=== PATIENT | male | born 1975 | race Caucasian/White ===

== ENCOUNTER 2019-03-01 14:41 | Emergency (ER) | payer OTHER ==
[2019-03-01] MEDS ORDERED: Ketorolac INJ* 30 MG/ML 1 ML VIAL IM ONE (15:54)
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
[2019-03-01 16:50] VITALS: BP 128/88
== END 2019-03-01 16:40 | disposition home or self-care (01) ==
LOC: ED 14:41
DX: S69.92XA Unspecified injury of left wrist, hand and finger(s), initial encounter (principal); S93.401A Sprain of unspecified ligament of right ankle, initial encounter; V13.4XXA Pedal cycle driver injured in collision with car, pick-up truck or van in traffic accident, initial encounter; Y93.55 Activity, bike riding; Y92.410 Unspecified street and highway as the place of occurrence of the external cause; F17.210 Nicotine dependence, cigarettes, uncomplicated
CPT/HCPCS: 96372; 99282; J1885